=== PATIENT | female | born 1950 | race Two or more races ===

== ENCOUNTER 2019-07-06 23:41 | Inpatient (IN) | payer MEDICARE, BC ==
[~2019-07-06] VITALS: Ht 180.3 cm; Wt 116.1 kg
[2019-07-07] MEDS ORDERED: MAG HYDROX/AL HYDROX/SIMETH 30 ML UDC PO PRN (15:30)
[2019-07-07] MEDS ORDERED: BLOOD SUGAR DIAGNOSTIC 1 EACH STRIP IN ONE (15:30)
[2019-07-07] MEDS ORDERED: MAGNESIUM HYDROXIDE 30 ML UDC PO PRN (15:30)
[2019-07-07] MEDS ORDERED: TRAZ-214 PO (15:58)
[2019-07-07] MEDS ORDERED: HYDR12.55 (15:58)
[2019-07-07] MEDS ORDERED: OLME40TA12 PO (15:58)
[2019-07-07] MEDS ORDERED: PROP60TA6 PO (15:58)
[2019-07-07] MEDS ORDERED: RIVA10TA PO (15:58)
[2019-07-07 16:00] VITALS: BP 125/80
[2019-07-07] MEDS: LORAZEPAM 0.5 MG TABLET PO PRN (17:03)
--- NOTE | 2019-07-07 17:32 | NUR ---
PATIENT IS A 69 YEAR OLD FEMALE, BROUGHT IN TO THE HOSPITAL BY [facility], ADMITTED ON A 5150 FOR DANGER TO SELF FROM [facility]. PATIENT IS ADMITTED ON A 5150 FOR DTS DUE TO INCREASED SUICIDAL IDEATION FOR THE LAST 3 WEEKS WITH PLAN OT HANG HERSELF IN FAMILY HOME. UPON FACE TO FACE ASSESSMENT PATIENT ENDORSES SI WITH PLAN TO HANG HERSELF. PATIENT IS DEPRESSED AND ANXIOUS. AOX4, AMBULATORY WITH CANE, WELL GROOMED. HISTORY OF PAST PSYCHIATRIC HOSPITALIZATION AND ETOH ABUSE. LAST DRINK WAS ON FRIDAY, 5 DRINKS AT MEAL TIME. PATIENT RIGHTS HANDBOOK WAS GIVEN. VITAL SIGNS ARE WNL, BP IS 125/81. HR 61. RR 20. 02 SATURATION 98 ON RA. SKIN IS INTACT. DR GAVIN AND DR DOW HAVE BEEN NOTIFIED OF ADMISSION. WILL CONTINUE TO MONITOR Q15 FOR SAFETY AND BEHAVIOR.
[2019-07-07 20:20] VITALS: BP 120/74
[2019-07-07 20:29] VITALS: BP 120/79
[2019-07-07] MEDS: TEMAZEPAM 7.5 MG CAPSULE PO PRN (21:35)
--- NOTE | 2019-07-07 21:39 | NUR ---
paint tinter notes pt asking for her sleep medication , rsetoril given po as ordered and educated pt for possible side effect and pt understood well. kept her warm and comfortable at all times. will continue closely monitoring q 15 minutes for safety.
[2019-07-08] MEDS: LORAZEPAM 0.5 MG TABLET PO PRN ×2 (02:29→13:19)
--- NOTE | 2019-07-08 02:29 | NUR ---
rough patcher notes Ativan given per pt requested. educate for possible side effect pt understood well. kept her warm, safe and comfortable at all times. will continue monitoring.
[2019-07-08 07:17] LABS: ALBUMIN 3.3 g/dL (3.4-5.0); BILIRUBIN,TOTAL 0.5 mg/dL (0.2-1.0); CALCIUM, SERUM 8.6 mg/dL (8.5-10.1); CREATININE 0.6 mg/dL (0.6-1.3); POTASSIUM 3.7 mmol/L (3.5-5.1); TOTAL PROTEIN, SERUM 6.7 g/dL (6.4-8.2)
[2019-07-08 07:37] LABS: CHOLESTEROL 212 mg/dL (<200); HDL CHOLESTEROL 73 mg/dL (40-60); LDL 117 mg/dL (0-99); TRIGLYCERIDES 151 mg/dL (30-150)
[2019-07-08 08:00] VITALS: BP 129/73
[2019-07-08] MEDS: HYDROCHLOROTHIAZIDE 25 MG TABLET PO SCH (08:24)
[2019-07-08] MEDS: PROPRANOLOL LA 60 MG CAP.SA.24H PO SCH (08:25)
[2019-07-08] MEDS: VALSARTAN 80 MG TABLET PO SCH (08:25)
[2019-07-08] MEDS: RIVAROXABAN 10 MG TABLET PO SCH (08:26)
--- NOTE | 2019-07-08 13:10 | NUR ---
Family Contact: HANG called the pts , Binh ([phone]), and informed him about the pts treatment plan and the initial discharge plan. HANG stated that the average lenth of stay is about 7-10 days and that Medicare would cover the pts hospital stay. HANG also discussed transportation back to the pts home and he stated that it is a bit far away and that he may not be able to unless it is an emergency.
--- NOTE | 2019-07-08 13:19 | NUR ---
PATIENT C/O ANXIETY. PRN ATIVAN GIVEN.
--- NOTE | 2019-07-08 13:20 | NUR ---
Initial Discharge Plan: Pt currently resides at her home with her located at [address] [place] [address]; ([phone]). Per pt, she would like to return to her home. SW will work with the pt and the MD regarding appropriate discharge planning. SW will form a safe and proper discharge.
--- NOTE | 2019-07-08 15:53 | NUR ---
SS Group Note 07/08/19: SW went to patient's room to invite patient to attend today's support group at 2:00pm regarding what they would like to change as a result of their stay here. Patient refused, statign, "I rather read". SW encouraged patient to attend and just sit in , however, pt. declined. SW respected patient's self-determination.
[2019-07-08 16:00] VITALS: BP 138/84
--- NOTE | 2019-07-08 19:30 | NUR ---
GPS RN NOTE, RECEIVED PATIENT AWAKE AND IN BED, NO S/S OR COMPLAINTS OF PAIN AT THIS TIME. PATIENT IS DISPLAYING NO S/S OF APPARENT DISTRESS AT THIS TIME. PATIENT BREATHING IS UNLABORED WITH EQUAL RISE AND FALL OF THE CHEST. PATIENT IS ALERT AND ORIENTED X 4 ON ROOM AIR WITH A SPO2 98%. PATIENT COMPLAINT WITH MEDICATION, ANXIOUS, COOPERATIVE, SUSPICIOUS, AND NEEDS REORIENTATION. PATIENT DENIES SUICIDE AND HOMICIDAL IDEATIONS AT THIS TIME. PATIENT ASSISTED WITH TURNING AND REPOSITIONING Q2HR AND PRN FOR COMFORT AND CIRCULATION. PATIENT HAS NO NEEDS AT THIS TIME. PATIENT EDUCATED ON THE USE OF THE CALL AGUILAR. PATIENT BED SIDE RAILS UP X2 FOR SAFETY, BED IS LOCKED AND LOW WILL CONTINUE TO MONITOR AND MAINTAIN SAFETY.
[2019-07-08 20:28] VITALS: BP 147/87
[2019-07-08 20:29] VITALS: BP 147/87
[2019-07-08] MEDS: DIVALPROEX SODIUM 250 MG TABLET.DR PO SCH (21:54)
[2019-07-08] MEDS: risperiDONE 1 MG TABLET PO SCH (21:54)
[2019-07-08] MEDS: TEMAZEPAM 7.5 MG CAPSULE PO PRN (22:56)
[2019-07-09 08:00] VITALS: BP 108/66
[2019-07-09] MEDS: VALSARTAN 80 MG TABLET PO SCH (08:40)
[2019-07-09] MEDS: HYDROCHLOROTHIAZIDE 25 MG TABLET PO SCH (08:42)
[2019-07-09] MEDS: risperiDONE 1 MG TABLET PO SCH ×2 (08:42→20:20)
[2019-07-09] MEDS: RIVAROXABAN 10 MG TABLET PO SCH (08:43)
[2019-07-09] MEDS: DIVALPROEX SODIUM 250 MG TABLET.DR PO SCH ×3 (08:44→16:39)
[2019-07-09] MEDS: PROPRANOLOL LA 60 MG CAP.SA.24H PO SCH (08:45)
[2019-07-09] MEDS: LORAZEPAM 0.5 MG TABLET PO PRN (13:07)
--- NOTE | 2019-07-09 13:09 | NUR ---
RN NOTE- PATIENT COMPLAIN OF ANXIETY. 1MG ATIVAN PRN WAS GIVEN
--- NOTE | 2019-07-09 13:55 | NUR ---
Family Contact: Pts , Binh ([phone]), called the SW and stated that there is supposed to be a hearing on Friday. SW stated that she has not received the schedule yet but explained what the hearing entails. Pts asked that the SW inform him of the time when she can so that he can make the appropriate accommodations to be present.
--- NOTE | 2019-07-09 14:31 | NUR ---
Substance Abuse Intervention: SW conducted a substance abuse intervention with the pt due to the pts alcohol abuse.
--- NOTE | 2019-07-09 14:32 | NUR ---
PC Hearing Notification: HANG called the pts , Binh ([phone]), and informed him that the pts hearing is scheduled for 3:30PM but informed him that oftentimes the hearings can happen earlier.
[2019-07-09 16:00] VITALS: BP 111/74
--- NOTE | 2019-07-09 19:08 | NUR ---
GPS RN NPOTE: AWAKE, ALERT, REQUESTING FOR HER MEDICATION GIVEN EARLY.
[2019-07-09 19:50] VITALS: BP 119/67
[2019-07-09] MEDS: TEMAZEPAM 7.5 MG CAPSULE PO PRN (20:20)
--- NOTE | 2019-07-09 20:20 | NUR ---
GPS/RN NOTE: PATIENT TOOK HER RISPERDONE 1 MG DUE FOR 2099. PATIENT ALSO ASKED FOR SLEEPING PILL, C/O INSOMNIA, RESTORIL 15 MG TAB PO GIVEN.
[2019-07-09] MEDS: TRAZODONE 50 MG TABLET PO PRN (23:49)
--- NOTE | 2019-07-09 23:49 | NUR ---
GPS/RN NOTE: PATIENT WOKE UP, ASKING FOR TRAZODONE, UNABLE TO GO BACK TO SLEEP, TRAZODONE 100 MG TAB PO GIVEN.
[2019-07-10 08:00] VITALS: BP 108/68
[2019-07-10] MEDS: RIVAROXABAN 10 MG TABLET PO SCH (09:34)
[2019-07-10] MEDS: VALSARTAN 80 MG TABLET PO SCH (09:35)
[2019-07-10] MEDS: HYDROCHLOROTHIAZIDE 25 MG TABLET PO SCH (09:35)
[2019-07-10] MEDS: risperiDONE 1 MG TABLET PO SCH ×2 (09:35→20:50)
[2019-07-10] MEDS: DIVALPROEX SODIUM 250 MG TABLET.DR PO SCH ×3 (09:35→16:07)
[2019-07-10] MEDS: PROPRANOLOL LA 60 MG CAP.SA.24H PO SCH (12:03)
[2019-07-10 16:00] VITALS: BP 126/82
[2019-07-10] MEDS: LORAZEPAM 0.5 MG TABLET PO PRN (16:11)
--- NOTE | 2019-07-10 18:47 | NUR ---
Patient is sometimes anxious about her feelings/thoughts like being worn out, missing a meal, or her neighbor needing something. She is cooperative with her treatment. Occasionally she wants to make decisions about her medication like her beta nura, but education about her Doctor's orders and side effects of atrial fibrillation when out of control make her understand the need for her treatment. Patient given as needed anxiety medication ativan. She agrees with her treatment regimen. Will endorse to night nurse. Kalin Araujo RN
--- NOTE | 2019-07-10 20:04 | NUR ---
GPS/RN NOTE: AWAKE, ALERT, ORIENTED X3, STATED," I DON'T WANT TO HURT MYSELF, BUT MY THOUGHTS ARE FAR BACK." AMBULATORY WITH WALKER. COOPERATIVE, ANXIOUS. WILL CONTINUE TO MONITOR FOR SAFETY AND BEHAVIOR.
[2019-07-10 20:13] VITALS: BP 107/63
[2019-07-10] MEDS: TEMAZEPAM 7.5 MG CAPSULE PO PRN (20:50)
--- NOTE | 2019-07-10 20:50 | NUR ---
GPS/RN NOTE: C/O INSOMNIA, TEMAZEPAM 15 MG CAP PO GIVEN.
[2019-07-11] MEDS: TRAZODONE 50 MG TABLET PO PRN ×2 (00:30→21:40)
--- NOTE | 2019-07-11 00:31 | NUR ---
GPS/RN NOTE: PATIENT WOKE UP, UNABLE TO GO BACK TO HER SLEEP, TRAZODONE 100 MG TAB PO GIVEN.
--- NOTE | 2019-07-11 07:04 | NUR ---
GPS/RN NOTE: SLEPT FOR 8 HOURS, NO APPARENT DISTRESS NOTED DURING THE NIGHT. PLEASANT AND SLEPT WELL.
[2019-07-11 08:00] VITALS: BP 138/72
[2019-07-11] MEDS: ACETAMINOPHEN 325 MG TABLET PO PRN (08:40)
[2019-07-11] MEDS: VALSARTAN 80 MG TABLET PO SCH (08:41)
[2019-07-11] MEDS: RIVAROXABAN 10 MG TABLET PO SCH (08:45)
[2019-07-11] MEDS: risperiDONE 1 MG TABLET PO SCH ×2 (08:45→21:14)
[2019-07-11] MEDS: DIVALPROEX SODIUM 250 MG TABLET.DR PO SCH ×3 (08:45→16:33)
[2019-07-11] MEDS: HYDROCHLOROTHIAZIDE 25 MG TABLET PO SCH (08:45)
[2019-07-11] MEDS: PROPRANOLOL LA 60 MG CAP.SA.24H PO SCH (08:47)
[2019-07-11 16:00] VITALS: BP 115/69
--- NOTE | 2019-07-11 18:47 | NUR ---
Patient visit with her spouse today. Supportive visit in day room. Patient verbalizes she was happy to visit with him. The spouse was educated foods have to be sealed like the cookies he brought from home. He verbalizes understanding. The GEAR CHANGER and spouse arranged and accounted for items on belongings list in her room closet. Patient is medication compliant. She ambulates with assistance of a walker. She does not go to day room because of the noise. She prefers to be somewhere more quiet she says without shouting. She understands some of the patients who are yelling cannot help it. Will continue to monitor the patient for needs. Will endorse patient care to night RN. Kalin Abrams RN
[2019-07-11 20:09] VITALS: BP 116/62
[2019-07-11] MEDS: TEMAZEPAM 7.5 MG CAPSULE PO PRN (22:38)
[2019-07-12] MEDS: LORAZEPAM 0.5 MG TABLET PO PRN ×2 (03:16→13:18)
[2019-07-12 08:00] VITALS: BP 136/77
[2019-07-12] MEDS: VALSARTAN 80 MG TABLET PO SCH (08:47)
[2019-07-12] MEDS: DIVALPROEX SODIUM 250 MG TABLET.DR PO SCH ×3 (08:47→16:16)
[2019-07-12] MEDS: ACETAMINOPHEN 325 MG TABLET PO PRN ×2 (08:47→20:47)
[2019-07-12] MEDS: risperiDONE 1 MG TABLET PO SCH ×2 (08:48→21:16)
[2019-07-12] MEDS: HYDROCHLOROTHIAZIDE 25 MG TABLET PO SCH (08:48)
[2019-07-12] MEDS: RIVAROXABAN 10 MG TABLET PO SCH (08:49)
[2019-07-12] MEDS: PROPRANOLOL LA 60 MG CAP.SA.24H PO SCH (08:53)
--- NOTE | 2019-07-12 10:30 | NUR ---
Family Contact: SW called the pts , Binh ([phone]), and receiving a message on her voicemail from him. SW stated that the pt cannot be transferred to [facility] because they are not a [facility] facility and the pt has been placed on a hold. Pts stated that he no longer felt the need to be part of the hearing and stated that he was going to return back to his home. Pts stated that he will have the pt return home with him when she is set for discharge.
--- NOTE | 2019-07-12 13:19 | NUR ---
RN NOTE- ANXIETY EXPRESSED. ATIVAN PRN GIVEN
--- NOTE | 2019-07-12 15:53 | NUR ---
SS Group Note 07/08/19: SW went to patient's room to invite patient to attend today's support group at 2:00pm regarding recognizing positive aspects in their life. Patient refused stating, "I'm going to have my hearing soon so I will wait for them to come get me". SW encouraged patient to attend later but respected patient's self-determination.
[2019-07-12 16:00] VITALS: BP 131/75
[2019-07-12 20:57] VITALS: BP 112/71
[2019-07-12] MEDS: TRAZODONE 50 MG TABLET PO SCH (21:17)
[2019-07-12] MEDS: TEMAZEPAM 7.5 MG CAPSULE PO PRN ×2 (21:17→22:40)
[2019-07-13] MEDS: LORAZEPAM 0.5 MG TABLET PO PRN (02:48)
[2019-07-13 08:00] VITALS: BP 114/77
[2019-07-13] MEDS: risperiDONE 1 MG TABLET PO SCH ×2 (08:26→20:14)
[2019-07-13] MEDS: ACETAMINOPHEN 325 MG TABLET PO PRN ×2 (08:28→19:13)
[2019-07-13] MEDS: DIVALPROEX SODIUM 250 MG TABLET.DR PO SCH ×3 (08:29→16:42)
[2019-07-13] MEDS: RIVAROXABAN 10 MG TABLET PO SCH (08:29)
[2019-07-13] MEDS: HYDROCHLOROTHIAZIDE 25 MG TABLET PO SCH (08:30)
[2019-07-13] MEDS: PROPRANOLOL LA 60 MG CAP.SA.24H PO SCH (09:26)
[2019-07-13] MEDS: VALSARTAN 80 MG TABLET PO SCH (09:34)
[2019-07-13] MEDS: MENTHOL/CETYLPYRD (CEPACOL) 1 LOZ LOZENGE PO PRN ×4 (10:04→19:12)
--- NOTE | 2019-07-13 13:19 | NUR ---
Family Contact: HANG called the pts , Binh ([phone]), and informed him that Dr Diop is releasing the pt the following day and that the pt will be referred to a psychiatrist that has an understanding of bipolar disorder. Pts stated that he arranged for a train to [place] pick[place] the pt around 12pm. SW stated that she will be transported via taxi at around 10:30am.
[2019-07-13 16:00] VITALS: BP 133/60
[2019-07-13] MEDS: GUAIFENESIN 300 MG/15 ML UDC PO PRN ×2 (16:42→22:19)
--- NOTE | 2019-07-13 19:13 | NUR ---
GPS/RN NOTE: C/O OF GEN. ACHES AND PAINS, TYLENOL 650 MG TAB PO GIVEN.
[2019-07-13 20:00] VITALS: BP 100/61
[2019-07-13] MEDS: TEMAZEPAM 7.5 MG CAPSULE PO PRN (20:15)
--- NOTE | 2019-07-13 20:16 | NUR ---
GPS/RN NOTE: REQUESTED FOR HER SLEEPING PILL, TEMAZEPAM 15 MG CAP PO GIVEN.
[2019-07-13 20:18] VITALS: BP 100/61
[2019-07-13] MEDS: TRAZODONE 50 MG TABLET PO SCH (21:28)
--- NOTE | 2019-07-13 22:21 | NUR ---
GPS/RN NOTE: C/O NON-PRODUCTIVE COUGH, GUAIFENESIN 300 MG, 15 ML PO GIVEN.
[2019-07-14] MEDS: ACETAMINOPHEN 325 MG TABLET PO PRN ×2 (05:33→08:26)
--- NOTE | 2019-07-14 05:33 | NUR ---
GPS/RN NOTE: C/O GENERAL BODY ACHES, TYLENOL 650 MG TAB PO GIVEN.
[2019-07-14] MEDS: MENTHOL/CETYLPYRD (CEPACOL) 1 LOZ LOZENGE PO PRN ×2 (06:21→09:00)
--- NOTE | 2019-07-14 06:23 | NUR ---
GPS/RN NOTE: 1 LOZENGE/MENTHOL 1 PO GIVEN FOR SORE THROAT
--- NOTE | 2019-07-14 06:25 | NUR ---
GPS/RN NOTE: END OF SHIFT NOTE: PATIENT SLEPT FOR 8 HOURS. FEELS BETTER THIS MORNING. GETTING READY TO GO HOME. NO APPARENT DISTRESS NOTED. DENIES ANY PAIN AT THIS TIME, MEDICATED NEEDED DURING THE SHIFT.
[2019-07-14 07:19] LABS: BASOPHILS % (AUTO) 0.5 % (0.0-2.0); EOSINOPHILS % (AUTO) 3.9 % (0.0-6.0); HEMATOCRIT 44 % (33-45); HEMOGLOBIN 14.4 g/dL (11.5-14.8); LYMPHOCYTES # (AUTO) 2.5 /CMM (0.8-4.8); LYMPHOCYTES % (AUTO) 30.7 % (20.0-44.0); MEAN CORPUSCULAR HGB CONC 33 g/dl (31.0-36.0); MEAN CORPUSCULAR VOLUME 97 fL (82-100); MONOCYTES # (AUTO) 0.7 /CMM (0.1-1.30); MONOCYTES % (AUTO) 8.6 % (2.0-12.0); NEUTROPHILS # (AUTO) 4.5 /CMM (1.8-8.9); NEUTROPHILS % (AUTO) 56.3 % (43.0-81.0); PLATELET COUNT (AUTO) 227 /CMM (150-450); RED BLOOD CELL COUNT(AUTO) 4.51 MIL/uL (4.0-5.2)
[2019-07-14 07:56] LABS: CALCIUM, SERUM 9.1 mg/dL (8.5-10.1); CARBON DIOXIDE 28 mmol/L (21-32); CHLORIDE 98 mmol/L (98-107); CREATININE 0.5 mg/dL (0.6-1.3); GLUCOSE 104 mg/dL (74-106); PHOSPHORUS 4.3 mg/dL (2.5-4.9); POTASSIUM 4.1 mmol/L (3.5-5.1); SODIUM SERUM 134 mmol/L (136-145); UREA NITROGEN, BLOOD 14 mg/dL (7-18)
[2019-07-14 08:00] VITALS: BP 133/78
[2019-07-14] MEDS: VALSARTAN 80 MG TABLET PO SCH (08:25)
[2019-07-14] MEDS: risperiDONE 1 MG TABLET PO SCH (08:25)
--- NOTE | 2019-07-14 08:25 | NUR ---
DR. GAVIN GAVE AN ORDER TO D/C HOLD AND D/C HOME AND TO FOLLOW UP WITH PSYCH AND MEDICAL DOCTORS.
[2019-07-14] MEDS: HYDROCHLOROTHIAZIDE 25 MG TABLET PO SCH (08:26)
[2019-07-14] MEDS: DIVALPROEX SODIUM 250 MG TABLET.DR PO SCH (08:26)
[2019-07-14] MEDS: RIVAROXABAN 10 MG TABLET PO SCH (08:27)
[2019-07-14 08:28] VITALS: BP 133/78
[2019-07-14] MEDS: PROPRANOLOL LA 60 MG CAP.SA.24H PO SCH (08:28)
--- NOTE | 2019-07-14 09:09 | NUR ---
DR. CAMACHO MADE AWARE OF THE DISCHARGE AND PROVIDED PRESCRIPTION.
--- NOTE | 2019-07-14 10:40 | NUR ---
GPS RN NOTE: 69 YEAR OLD FEMALE DISCHARGED HOME IN STABLE CONDITION. PATIENT IS COMPLIANT WITH MEDICATIONS AND COOPERATIVE WITH TREATMENT PLANS. PATIENT DENIES SI/HI AND VAH. INSTRUCTED TO GO TO CLOSEST ER IF DEVELOPING SI/HI. BEHAVIOR IMPROVED - LESS DEPRESSED, DENIES SI, EUTHYMIC MOOD AND AFFECT. PSYCHIATRIC TREATMENT PLANS MED, MEDICAL TREATMENT PLANS DEFERRED FOR CONTINUAL MONITORING. MEDICATIONS RECONCILED WITH DR. GAVIN AND DR. PATINO. EDUCATED PATIENT ABOUT AFTER PLAN (EXIT CARE) INCLUDING FOLLOW UP APPOINTMENTS, AND COPY PROVIDED. PATIENT VERBALIZED UNDERSTANDING OF EXIT CARE. PATIENT SIGNED DISCHARGE PAPERWORK. PERSONAL BELONGINGS WERE RETURNED TO THE PATIENT. UPDATED PHOTOS OF DBS DEVICE PLACEMENT AND SCAR ADDED INTO CHART. NO OTHER WOUNDS. PATIENT ESCORTED OFF THE UNIT WITH VOUCHER FOR TAXI AND VISUALLY WITNESSED PATIENT ENTER CAR. PATIENT LEFT UNIT AT 1025.
--- NOTE | 2019-07-14 15:33 | NUR ---
Discharge Note: Pt was discharged to back home located at [address] [place] [address]; ([phone]). Pt was discharged to the [employer] station located at [address] [place] [phone] via taxi at 10:30AM. Pt had a train ticket for 12pm. Pts , Binh ([phone]), was made aware. Upon discharge, the pt appeared to be in a euthymic mood and presented with a calm affect. Pt denied both suicidal and homicidal ideation as well as auditory and visual hallucinations. Pt will be under the care of her psychiatrist, Dr. Garcia, located at [address] [address]; ; fax of records was sent to: . Pt will also be under the care of her artificial intelligence specialist, Dr. Sunni Pederson, located at [address] [place], [address]; .
== END 2019-07-14 10:25 | disposition home or self-care (01) | DRG 885 ==
LOC: GPS 07-07 15:06
PROVIDERS: ADMIT Psychiatry & Neurology Psychiatry; ATTEND Nurse Practitioner Acute Care
DX: F31.5 Bipolar disorder, current episode depressed, severe, with psychotic features (principal); D68.59 Other primary thrombophilia; R45.851 Suicidal ideations; F23 Brief psychotic disorder; M19.90 Unspecified osteoarthritis, unspecified site; I10 Essential (primary) hypertension; G20 Parkinson's disease; R73.9 Hyperglycemia, unspecified; Z96.652 Presence of left artificial knee joint; F10.20 Alcohol dependence, uncomplicated; Z96.82 Presence of neurostimulator; Z79.01 Long term (current) use of anticoagulants
CPT/HCPCS: 36415; 80048-TC; 80053-TC; 80061-TC; 82962-TC; 83735-TC; 84100-TC; 85025-TC; 87081-TC